=== PATIENT | male | born 1975 | race Caucasian/White ===

== ENCOUNTER 2019-08-21 14:36 | Emergency (ER) | payer SELFPAY ==
[~2019-08-21] VITALS: Ht 175.3 cm; Wt 83.1 kg
--- NOTE | 2019-08-21 15:50 | NUR ---
PT WITH C/O ANAL LEAKAGE, BEING CONSTIPATED OVER THE LAST FEW DAYS. PT WITH HX OF HIV/HPV. NO C/O DIZZINESS, SOB, CP
[2019-08-21 16:03] LABS: MICROSCOPIC AUTO
[2019-08-21 16:05] LABS: BASOPHILS # (AUTO) 0.03 x10^3/uL (0-0.1); BASOPHILS % (AUTO) 0 % (0-1); EOSINOPHILS # (AUTO) 0.13 x10^3/uL (0-0.4); EOSINOPHILS % (AUTO) 2 % (1-7); LYMPHOCYTES # (AUTO) 2.95 x10^3/uL (1-3.4); LYMPHOCYTES % (AUTO) 45 % (22-44); MD NO; MEAN CORPUSCULAR HGB CONC 34.3 g/dL (33.2-36.2); MEAN CORPUSCULAR VOLUME 99.1 fL (81-97); MEAN PLATELET VOLUME 7.8 fL (7.4-10.4); MONOCYTES # (AUTO) 0.51 x10^3/uL (0.2-0.8); MONOCYTES % (AUTO) 8 % (2-9); NEUTROPHILS % (AUTO) 45 % (42-75); PLATELET COUNT 300 x10^3/uL (130-400); RED BLOOD COUNT 5.02 x10^6/uL (4.38-5.82); RED CELL DISTRIBUTION WIDTH 12.4 % (9.4-14.8)
--- NOTE | 2019-08-21 16:08 | NUR ---
THIS RN BEDSIDE WITH STEVEN MULLEN DURING RECTAL EXAM. PT TOLERATED WITH NO COMPLICATIONS. Addendum: 08/21/19 at 1609 by GRAY TASK RN:
[2019-08-21 16:14] LABS: CULTURE INDICATED? NO
[2019-08-21 16:15] LABS: ALANINE AMINOTRANSFERASE 23 U/L (12-78); ALBUMIN 4.2 g/dL (3.4-5.0); ANION GAP 5 mmol/L (5-15); CALCIUM 9.9 mg/dL (8.5-10.1); CHLORIDE 109 mmol/L (98-107); CREATININE 1.49 mg/dL (0.7-1.3)
[2019-08-21 16:18] LABS: ALKALINE PHOSPHATASE 126 U/L (45-117); BILIRUBIN,TOTAL 0.6 mg/dL (0.2-1.0); TOTAL PROTEIN 8.2 g/dL (6.4-8.2)
[2019-08-21] MEDS ORDERED: SODIUM CHLORIDE FLUSH 10ML SYR IVF ONE (16:30)
[2019-08-21 17:06] VITALS: BP 113/74
--- NOTE | 2019-08-21 17:06 | NUR ---
PIV INITIATED, PT TO GO TO CT.
[2019-08-21] MEDS ORDERED: OMNIPAQUE 350 MG/ML, 100ML BOTTLE ONE (17:34)
[2019-08-21] MEDS ORDERED: AZITHROMYCIN 500 MG TABLET PO ONE (18:00)
[2019-08-21] MEDS ORDERED: CEFTRIAXONE 250 MG IM ONE (18:00)
[2019-08-21] MEDS ORDERED: LIDOCAINE-MPF 1%, 2ML ONE (18:09)
[2019-08-21] MEDS ORDERED: AZITHROMYCIN 500 MG TABLET ONE (18:09)
[2019-08-21] MEDS ORDERED: CEFTRIAXONE 250 MG ONE (18:09)
== END 2019-08-21 18:25 | disposition home or self-care (01) ==
LOC: ED 17:40
DX: K62.89 Other specified diseases of anus and rectum (principal)
CPT/HCPCS: 36415; 74021; 74177; 80053; 81001; 83690; 85025; 96372; 99284; J0696; Q9967